=== PATIENT | female | born 1955 | race Caucasian/White ===

== ENCOUNTER → 2016-06-09 | Day surgery (SDC) | payer BC ==
[~2016-06-09] VITALS: Ht 154.9 cm; Wt 884.0 kg
[~2016-06-09] MED LIST: CVS OMEGA-3 KR1 EAC1 PO; MIRAPEX0.25 MG PO; OCUVITE EYE +1 EACH PO; PROTONIX40 MG PO; THERA-VITE W/ B1 TAB PO; ZOCOR40 MG PO
== END | disposition disaster alternative care site (69) ==
LOC: GPOC 06-03 09:00 → GEND 06:50 → GPOC 09:00
PROC: 0DBH8ZX Excision of Cecum, Via Natural or Artificial Opening Endoscopic, Diagnostic (ICD-10-PCS; principal; 2016-06-09)
PROC: 0DBP8ZX Excision of Rectum, Via Natural or Artificial Opening Endoscopic, Diagnostic (ICD-10-PCS; 2016-06-09)
DX: Z12.11 Encounter for screening for malignant neoplasm of colon (principal); D12.0 Benign neoplasm of cecum; K62.1 Rectal polyp; K64.8 Other hemorrhoids; K64.4 Residual hemorrhoidal skin tags; K21.9 Gastro-esophageal reflux disease without esophagitis; Z98.890 Other specified postprocedural states
CPT/HCPCS: J2001; J7030